=== PATIENT | male | born 1955 | race Caucasian/White ===

== ENCOUNTER 2022-04-04 10:55 | Inpatient (IN) ==
[~2022-04-04 10:55] MED LIST: ASPIRIN 325 MG TABLET PO ONE; DIAZEPAM 5 MG TABLET PO ONE; MAGNESIUM SULF RIDER 2 GM/50 ML PREMIX IV PRN; POTASSIUM CHLORIDE RIDER 10 MEQ/100 ML PREMIX IV PRN; diphenhydrAMINE CAP 50 MG CAPSULE PO ONE
[2022-04-04] MEDS ORDERED: DIAZEPAM 5 MG TABLET ONE (12:56)
[2022-04-04] MEDS ORDERED: ASPIRIN 325 MG TABLET ONE (12:56)
[2022-04-04] MEDS: SODIUM CHLORIDE 0.9% 1,000 ML IV SCH ×2 (12:59→20:48)
[2022-04-04] MEDS ORDERED: VERAPAMIL 5 MG/2 ML VIAL ONE (13:54)
[2022-04-04] MEDS ORDERED: NITROGLYCERIN DRIP 50 MG/250 ML BOTTLE IV ONE (13:54)
[2022-04-04] MEDS ORDERED: HYDROmorphone 1 MG/1 ML SYRINGE ONE ×5 (14:20→15:48)
[2022-04-04] MEDS ORDERED: MIDAZOLAM 2 MG/2 ML VIAL ONE (14:20)
[2022-04-04] MEDS ORDERED: HEPARIN 5,000 UNIT/1 ML VIAL ONE (14:59)
[2022-04-04] MEDS ORDERED: TIROFIBAN 5,000 MCG/100 ML PREMIX IV ONE (15:01)
[2022-04-04] MEDS ORDERED: MUPIROCIN 2% OINT 22 GM TUBE TOP PRN (16:31)
[2022-04-04] MEDS ORDERED: ONDANSETRON ODT 4 MG TABLET PO PRN (16:31)
[2022-04-04] MEDS: INSULIN NPH 100 UNIT/ML SUBCUT SCH (19:25)
[2022-04-04] MEDS: oxyCODONE IR 5 MG TABLET PO PRN (20:46)
[2022-04-04] MEDS: PANTOPRAZOLE 40 MG TABLET PO SCH (20:47)
[2022-04-04] MEDS: clonazePAM 0.5 MG TABLET PO SCH (20:47)
[2022-04-04] MEDS: MORPHINE IR 15 MG TABLET PO SCH (21:58)
[2022-04-05] MEDS: oxyCODONE IR 5 MG TABLET PO PRN ×3 (03:54→21:45)
[2022-04-05 04:53] LABS: Basophils # 0.1 10*3/uL (0.0-0.2); Basophils % 0.7 % (0.0-0.8); Eosinophils # 0.4 10*3/uL (0.0-0.87); Eosinophils % 4.8 % (0.00-10.9); Hematocrit 36.5 VOL% (42.0-52.0); Hemoglobin 12.4 GM/DL (14.0-18.0); Immature Granulocytes % 0.3 %; Immature Granulocytes Absolute 0.03 #; Lymphocytes # 1.5 10*3/uL (1.4-4.0); Lymphocytes % 16.8 % (21.2-54.2); Mean Corpuscular Volume 106.7 FL (87-102); Monocytes # 0.8 10*3/uL (0.11-0.8); Monocytes % 9.5 % (1.7-12.7); Neutrophils % 67.9 % (38.7-73.9); Platelet Count 249 T/CUMM (130-400); Red Blood Count 3.42 MC/CUMM (3.8-5.5); Red Cell Distribution Width 12.3 % (9.3-17.3); White Blood Count 8.6 T/CUMM (4-12)
[2022-04-05 05:07] LABS: Calcium 8.4 MG/DL (8.5-10.1); Osmolality,Calculated 273.8 MOS/KG (273-304)
[2022-04-05] MEDS ORDERED: HEPARIN 5,000 UNIT/1 ML VIAL ONE (08:59)
[2022-04-05] MEDS ORDERED: fentaNYL 100 MCG/2 ML VIAL ONE (09:01)
[2022-04-05] MEDS ORDERED: MIDAZOLAM 2 MG/2 ML VIAL ONE (09:01)
[2022-04-05] MEDS ORDERED: propofoL 200 MG/20 ML VIAL IV ONE (09:01)
[2022-04-05] MEDS ORDERED: ROCURONIUM 50 MG/5 ML VIAL IV ONE (09:01)
[2022-04-05] MEDS ORDERED: LIDOCAINE 2% 5 ML VIAL ONE (09:01)
[2022-04-05] MEDS ORDERED: SUCCINYLCHOLINE 200 MG/10 ML VIAL ONE (09:28)
[2022-04-05] MEDS ORDERED: VANCOMYCIN INJ 1,000 MG in SODIUM CHLORIDE 0.9% 250 ML IV ONE (10:00)
[2022-04-05] MEDS ORDERED: LACTATED RINGERS 1,000 ML IV SCH (10:00)
[2022-04-05] MEDS ORDERED: HEPARIN 10,000 UNIT/10 ML VIAL ONE (10:18)
[2022-04-05] MEDS: SODIUM CHLORIDE 0.9% 1,000 ML IV SCH (10:35)
[2022-04-05] MEDS: INSULIN NPH 100 UNIT/ML SUBCUT SCH ×3 (10:35→17:14)
[2022-04-05] MEDS: ASPIRIN EC 81 MG TABLET PO SCH (10:36)
[2022-04-05] MEDS: clonazePAM 0.5 MG TABLET PO SCH ×2 (10:36→22:13)
[2022-04-05] MEDS: PANTOPRAZOLE 40 MG TABLET PO SCH ×2 (10:36→22:13)
[2022-04-05] MEDS: MORPHINE IR 15 MG TABLET PO SCH ×3 (10:36→22:13)
[2022-04-05] MEDS ORDERED: DESFLURANE 1 UNIT/15 MINUTE INH ONE (10:38)
[2022-04-05] MEDS ORDERED: PROTAMINE SULFATE 50 MG/5 ML VIAL IV ONE (10:48)
[2022-04-05] MEDS ORDERED: GLYCOPYRROLATE 0.4 MG/2 ML VIAL ONE (11:00)
[2022-04-05] MEDS ORDERED: NEOSTIGMINE 10 MG/10 ML VIAL ONE (11:01)
[2022-04-05] MEDS ORDERED: ONDANSETRON 4 MG/2 ML VIAL IV PRN ×2 (11:15→11:21)
[2022-04-05] MEDS: HYDROmorphone 1 MG/1 ML SYRINGE IV PRN ×6 (11:22→21:13)
[2022-04-05] MEDS ORDERED: MEPERIDINE 25 MG/1 ML VIAL ONE (11:41)
[2022-04-05] MEDS ORDERED: MEPERIDINE 25 MG/1 ML VIAL IV PRN (11:41)
[2022-04-05] MEDS: INSULIN REGULAR 100 UNIT/ML SUBCUT SCH ×3 (13:46→22:12)
[2022-04-05] MEDS: EZETIMIBE 10 MG TABLET PO SCH (16:59)
[2022-04-05] MEDS: PHENAZOPYRIDINE 95 MG TABLET PO SCH (16:59)
[2022-04-05] MEDS: LACTATED RINGERS 1,000 ML IV SCH (17:14)
[2022-04-05] MEDS: DOCUSATE SODIUM 100 MG CAPSULE PO SCH (22:12)
[2022-04-06] MEDS: HYDROmorphone 1 MG/1 ML SYRINGE IV PRN ×2 (02:52→10:59)
[2022-04-06] MEDS: LACTATED RINGERS 1,000 ML IV SCH ×3 (02:54→11:04)
[2022-04-06] MEDS ORDERED: ENOXAPARIN 40 MG/0.4 ML SYRINGE SUBCUT SCH (05:30)
[2022-04-06 06:08] LABS: Basophils % 0.4 % (0.0-0.8); Eosinophils # 0.3 10*3/uL (0.0-0.87); Hematocrit 34.7 VOL% (42.0-52.0); Immature Granulocytes % 0.4 %; Immature Granulocytes Absolute 0.04 #; Lymphocytes # 1.1 10*3/uL (1.4-4.0); Lymphocytes % 11.7 % (21.2-54.2); Mean Corpuscular HGB Conc 34.6 GM/DL (32-36); Mean Corpuscular Volume 104.8 FL (87-102); Mean Platelet Volume 8.8 FL (9.6-12.0); Monocytes # 0.9 10*3/uL (0.11-0.8); Monocytes % 9.8 % (1.7-12.7); Neutrophils % 74.7 % (38.7-73.9); Platelet Count 218 T/CUMM (130-400); Red Blood Count 3.31 MC/CUMM (3.8-5.5); Red Cell Distribution Width 12.1 % (9.3-17.3); White Blood Count 9.5 T/CUMM (4-12)
[2022-04-06 06:27] LABS: Calcium 8.5 MG/DL (8.5-10.1); Osmolality,Calculated 271.8 MOS/KG (273-304)
[2022-04-06] MEDS: INSULIN REGULAR 100 UNIT/ML SUBCUT SCH ×2 (08:34→12:54)
[2022-04-06] MEDS: DOCUSATE SODIUM 100 MG CAPSULE PO SCH (08:51)
[2022-04-06] MEDS: EZETIMIBE 10 MG TABLET PO SCH (08:52)
[2022-04-06] MEDS: clonazePAM 0.5 MG TABLET PO SCH (08:52)
[2022-04-06] MEDS: PHENAZOPYRIDINE 95 MG TABLET PO SCH (08:52)
[2022-04-06] MEDS: oxyCODONE IR 5 MG TABLET PO PRN (08:52)
[2022-04-06] MEDS: PANTOPRAZOLE 40 MG TABLET PO SCH (08:53)
[2022-04-06] MEDS: INSULIN NPH 100 UNIT/ML SUBCUT SCH ×2 (08:54→13:03)
[2022-04-06] MEDS: MORPHINE IR 15 MG TABLET PO SCH (08:56)
[2022-04-06] MEDS ORDERED: ASPIRIN CHEW 81 MG TABLET PO SCH (09:00)
[2022-04-06] MEDS ORDERED: RIVAROXABAN 2.5 MG TABLET PO SCH (09:00)
[2022-04-06] MEDS: ASPIRIN EC 81 MG TABLET PO SCH ×2 (09:03→09:04)
[2022-04-06 11:48] VITALS: BP 139/65
== END 2022-04-06 13:36 | disposition home or self-care (01) | DRG 254 ==
LOC: N.ADMINP 10:55 → N.CL 10:55 → N.5E 17:10
PROVIDERS: ADMIT Internal Medicine Cardiovascular Disease; ATTEND Internal Medicine Cardiovascular Disease